=== PATIENT | male | born 1930 | race Caucasian/White ===

== ENCOUNTER 2016-06-13 08:23 | Emergency (ER) | payer MEDICARE, OTHER ==
[2016-06-13] MEDS ORDERED: Ibuprofen TAB* 600 MG PO ONE (08:44)
--- NOTE | 2016-06-13 09:17 | RAD ---
HISTORY: Trauma, injury to left lower quadrant, left hip pain COMPARISONS: None TECHNIQUE: Multiple contiguous axial CT scans were obtained of the lumbar spine without intravenous contrast, with coronal and sagittal multiplanar reformations. FINDINGS: SPINAL CANAL: Evaluation of the central canal is limited on CT technique; however, there is no obvious canalicular mass or epidural hemorrhage. ALIGNMENT: There is trace anterolisthesis of L4 on L5 VERTEBRAL BODIES: There is diffuse osteopenia. There is an age-indeterminate compression deformity of T11. There is no osseous retropulsion.. JOINTS: There is facet osteoarthritis most pronounced at L4-L5 and L5-S1 MUSCULATURE: Unremarkable INTERVERTEBRAL DISCS: There is diffuse loss of intervertebral disc height throughout the spine. AXIAL IMAGES: T10-T11: There is no osseous neural foraminal narrowing or central canal stenosis. T11-12: There is no osseous neural foraminal narrowing or central canal stenosis. T12-L1: There is no osseous neural foraminal narrowing or central canal stenosis. L1-L2: There is mild disc bulge. There is no osseous neural foraminal narrowing or central canal stenosis. L2-L3: There is no osseous neural foraminal narrowing or central canal stenosis. L3-L4: There is a broad-based disc bulge. There is moderate bilateral neural foraminal narrowing. There is mild narrowing of the central canal. L4-L5: There is broad-based disc bulge with ligamentous and facet hypertrophy. There is severe bilateral neural foraminal narrowing. There is severe narrowing of central canal. L5-S1: There is broad-based disc bulge. There is moderate bilateral neural foraminal narrowing. There is no significant central canal stenosis. SOFT TISSUES: There is atherosclerosis of the aorta. There are nonobstructing calyceal stones of the upper pole of the left kidney. Simple renal cyst is noted on the left OTHER: None IMPRESSION: 1. OSTEOPENIA. 2. 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 3. DEGENERATIVE DISC DISEASE AND OSTEOARTHRITIS. 4. THERE IS SEVERE NARROWING OF THE CENTRAL CANAL AT L4-L5 WITH MILD NARROWING AT L3-L4. 5. THERE IS MULTILEVEL NEURAL FORAMINAL NARROWING RIGHT ABOVE. 6. NONOBSTRUCTING LEFT RENAL CALYCEAL STONES.
[2016-06-13] MEDS ORDERED: oxyCODONE/Acetamin 5/325 MG* TAB PO ONE (09:41)
[2016-06-13] MEDS ORDERED: LORazepam TAB(*) 1 MG PO ONE (12:41)
[2016-06-13 15:16] VITALS: BP 143/93
--- NOTE | 2016-06-15 07:45 | ED ---
Ld Adams Benjamin, scribed for Moy Carbajal MD on 06/13/16 at 0847 . Back Pain - HPI Summary HPI Summary: 85yo male c/o slipped and fell, landing on his left hip. Pt is able to walk without pain, but states that his left back hurts when he rotates his hips laterally. Pt also reports bloated stomach. - History of Current Complaint Chief Complaint: EDBackInjuryPain Stated Complaint: LT HIP PAIN Time Seen by Provider: 06/13/16 08:43 Hx Obtained From: Patient Onset/Duration: Sudden Onset, Still Present Onset/Duration: Still Present Timing: Constant Back Pain Location: Is Discrete @ - Left back Severity Initially: Mild Severity Currently: Mild Aggravating Symptom(s): Movement Alleviating Symptom(s): Rest Associated Signs And Symptoms: Positive: Negative - Allergies/Home Medications Allergies/Adverse Reactions: Allergies Allergy/AdvReac Type Severity Reaction Status Date / Time No Known Allergies Allergy Verified 12/01/14 08:49 PMH/Surg Hx/FS Hx/Imm Hx Cardiovascular History: Reports: Other Cardiovascular Problems/Disorders Sensory History: Reports: Hx Contacts or Glasses - GLASSES Denies: Hx Hearing Aid Opthamlomology History: Reports: Hx Contacts or Glasses - GLASSES - Surgical History Surgery Procedure, Year, and Place: MEATAL SURGERY 50 YRS AGO Hx Anesthesia Reactions: No - Family History Known Family History: Negative: Cardiac Disease, Hypertension - Social History Occupation: Retired Lives: Alone Alcohol Use: Rare Substance Use Type: Reports: None Smoking Status (MU): Former Smoker Review of Systems Constitutional: Negative Eyes: Negative ENT: Negative Cardiovascular: Negative Respiratory: Negative Gastrointestinal: Negative Genitourinary: Negative Positive: Myalgia - left back pain Skin: Negative Neurological: Negative Psychological: Normal All Other Systems Reviewed And Are Negative: Yes Physical Exam Triage Information Reviewed: Yes Vital Signs On Initial Exam: Initial Vitals Resp 15 06/13/16 12:47 Vital Signs Reviewed: Yes Appearance: Positive: Well-Appearing, No Pain Distress, Well-Nourished Skin: Positive: Warm, Skin Color Reflects Adequate Perfusion, Dry Head/Face: Positive: Normal Head/Face Inspection Eyes: Positive: Normal ENT: Positive: Normal ENT inspection Neck: Positive: Supple, Nontender Respiratory/Lung Sounds: Positive: Clear to Auscultation, Breath Sounds Present Cardiovascular: Positive: RRR Abdomen Description: Positive: Nontender, Soft Bowel Sounds: Positive: Present Musculoskeletal: Positive: Strength/ROM Intact, Pain @ - Left sciatic area/ paralumbar area tenderness Neurological: Positive: Sensory/Motor Intact, Alert, Oriented to Person Place, Time, CN Intact II-III, Reflexes Intact Psychiatric: Positive: Affect/Mood Appropriate Diagnostics - Vital Signs Vital Signs Temp Pulse Resp BP Pulse Ox 06/13/16 15:14 98.2 F 85 15 143/93 97 06/13/16 12:47 15 - Laboratory Lab Statement: Any lab studies that have been ordered have been reviewed, and results considered in the medical decision making process. - CT CT L-Spine WO CT Interpretation: Positive (See Comments) - IMPRESSION: 1. OSTEOPENIA. 2. AGE -INDETERMINATE COMPRESSION DEFORMITY OF T11, WITHOUT OSSEOUS RETROPULSION. 3. DEGENERATIVE DISC DISEASE AND OSTEOARTHRITIS. 4. THERE IS SEVERE NARROWING OF THE CENTRAL CANAL AT L4-L5 WITH MILD NARROWING AT L3-L4. 5. THERE IS MULTILEVEL NEURAL FORAMINAL NARROWING RIGHT ABOVE. 6. NONOBSTRUCTING LEFT RENAL CALYCEAL STONES. CT Interpretation Completed By: Radiologist Back Pain Course/Dx - Course Course Of Treatment: Mr. Keys took a mechanical fall last night and found he was unable to get up this AM secondary to severe back pain. CT revealed a compression fracture of indeterminant age and this is likely the source of his pain. The pain was hard to control here with PO meds and arrangements were made to have him transfer to the nursing section of [facility]. - Diagnoses Provider Diagnoses: Compression fracture of body of thoracic vertebra Discharge - Discharge Plan Condition: Stable Disposition: HOME Prescriptions: oxyCODONE/Acetamin 5/325 MG* [Percocet 5/325 TAB*] 1 tab PO Q6H PRN #20 tab MDD 4 PRN Reason: Pain - Back Patient Education Materials: Vertebral Compression Fracture (ED) Referrals: Vilma Goldberg MD [Primary Care Provider] - The documentation as recorded by the Ld hunt Benjamin accurately reflects the service I personally performed and the decisions made by me, Moy Carbajal MD.
== END 2016-06-13 17:43 | disposition home or self-care (01) ==
LOC: ED 08:23
DX: M85.80 Other specified disorders of bone density and structure, unspecified site (principal); M51.36 Other intervertebral disc degeneration, lumbar region; M48.56XA Collapsed vertebra, not elsewhere classified, lumbar region, initial encounter for fracture
CPT/HCPCS: 72131; 99282; A9270-GY

== ENCOUNTER 2017-05-05 14:13 | Emergency (ER) | payer MEDICARE, OTHER ==
[2017-05-05 14:30] VITALS: BP 145/64
--- NOTE | 2017-05-05 15:27 | RAD ---
INDICATION: 3 days of congestion, cough and fever COMPARISON: None TECHNIQUE: PA and lateral views of the chest were obtained. FINDINGS: The heart and mediastinum are normal in size and contour. Linear density at the right greater than left lung base is morphologically most consistent with atelectasis. Otherwise the visualized lungs are grossly clear. There is no evidence of large pleural effusion. Visualized bones are normal for the patient's age. There is no radiographic evidence of free air beneath the diaphragm IMPRESSION: LIKELY RIGHT GREATER THAN LEFT BIBASILAR ATELECTASIS WITHOUT OTHER ACUTE CARDIOPULMONARY FINDINGS.
--- NOTE | 2017-05-05 16:05 | UC ---
Ryan Adams Stephanie, scribed for Tim Vanessa MD on 05/05/17 at 1605 . General HPI - HPI Summary HPI Summary: Pt is an 86 y/o M with c/o cough that began 2 days ago. Symptoms include pain over R lateral chest, SOB, and fever that developed 2 days ago. Pt denies GI issues. SOB is aggrevated with movement but is alleviated with rest. Pt does not smoke and has not taken any medications to relieve symptoms. - History of Current Complaint Chief Complaint: UCGeneralIllness Stated Complaint: CHEST CONGESTION, COUGH, AND FEVER Time Seen by Provider: 05/05/17 14:45 Hx Obtained From: Patient Onset/Duration: Sudden Onset Associated Signs & Symptoms: Positive: Cough, Chest Pain - R lateral, Fever, SOB. Negative: Diarrhea - Allergy/Home Medications Allergies/Adverse Reactions: Allergies Allergy/AdvReac Type Severity Reaction Status Date / Time No Known Allergies Allergy Verified 05/05/17 14:30 PMH/Surg Hx/FS Hx/Imm Hx Previously Healthy: No - Surgical History Surgical History: None Surgery Procedure, Year, and Place: METAL SURGERY 50 YRS AGO - Family History Known Family History: Negative: Cardiac Disease, Hypertension - Social History Occupation: Retired Alcohol Use: Rare Substance Use Type: None Smoking Status (MU): Former Smoker When Did the Patient Quit Smoking/Using Tobacco: 60 YRS AGO Review of Systems Constitutional: Fever Respiratory: Shortness Of Breath, Cough Cardiovascular: Chest Pain - R lateral All Other Systems Reviewed And Are Negative: Yes Physical Exam Triage Information Reviewed: Yes Vital Signs: Initial Vital Signs Temp 100.9 F 05/05/17 14:24 Pulse 88 05/05/17 14:24 Resp 20 05/05/17 14:24 BP 145/64 05/05/17 14:24 Pulse Ox 97 05/05/17 14:24 - Additional Comments General: well-appearing, no pain distress Skin: warm, color reflects adequate perfusion, dry Head: normal Eyes: EOMI, JESSENIA ENT: normal Neck: supple, nontender Respiratory: breath sounds present. Crackles in r base Cardiovascular: RRR Abdomen: soft, nontender Bowel: present Musculoskeletal: normal, strength/ROM intact Neurological: normal, sensory/motor intact, A&O x3 Psychological: affect/mood appropriate Diagnostics - Radiology CXR Xray Interpretation: No Acute Changes - LIKELY RIGHT GREATER THAN LEFT BIBASILAR ATELECTASIS WITHOUT OTHER ACUTE CARDIOPULMONARY FINDINGS. Radiology Interpretation Completed By: Radiologist Course/Dx - Course Course Of Treatment: DISCUSSED OTHER CAUSES OF CHEST PAIN TO INCLUDE PE. PT IS NOT TACHYCARDIC AND NOT HYPOXIC. NO RASH. WITH THE FEVER AND COUGH WILL TREAT FOR BRONCHITIS. F/U WITH PMD TOMORROW. PATIENT AGREED TO GO TO THE EMERGENCY DEPARTMENT FOR ANY WORSENING OF HIS CONDITION. - Differential Dx - Multi-Symptom Provider Diagnoses: BRONCHITIS AND RIGHT SIDED CHEST PAIN Discharge - Discharge Plan Condition: Stable Disposition: HOME Prescriptions: Azithromyxin LALO (NF) [Z-Lalo (Zithromax) 250 mg tabs #6] 2 tab PO .TODAY, THEN 1 DAILY #6 tab Patient Education Materials: Chest Pain (ED), Acute Bronchitis (ED) Referrals: Moses Conti MD [Primary Care Provider] - Additional Instructions: FOLLOW UP WITH YOUR DOCTOR. GO TO THE EMERGENCY DEPARTMENT FOR ANY WORSENING OF YOUR CONDITION; CHEST PAIN, SHORTNESS OF BREATH, YOU FEEL ILL OR QUESTIONS OR CONCERNS. The documentation as recorded by the Ryan hunt Stephanie accurately reflects the service I personally performed and the decisions made by me, Tim Vanessa MD.
== END 2017-05-05 16:00 | disposition home or self-care (01) ==
LOC: UCEAST 14:13
DX: J40 Bronchitis, not specified as acute or chronic (principal); R07.9 Chest pain, unspecified; Z87.891 Personal history of nicotine dependence
CPT/HCPCS: 71020; 99212; G0463

== ENCOUNTER → 2019-08-11 08:01 | Day surgery (SDC) | payer MEDICARE, OTHER ==
[~2019-08-11 08:01] MED LIST: Heparin 2 UNITS/ML IVPREMIX* 2,000 ML IV ONE; Heparin(*) 1000 UNIT/ML 10 ML VIAL CATH LAB IV ONE; Iohexol 350 (CONTRAST) 200 ML MDV IV ONE; Lidocaine 1% INJ* 10 MG/ML 30 ML SDV ONE; Midazolam* 1 MG/ML 5 ML VIAL (5 MG) ONE; NS 0.9% 1000 ML** 1,000 ML IV SCH; VERAPAMIL 2.5 MG/ML 2 ML VIAL ** 5 mg/2 ml ONE; fentaNYL* 50 MCG/ML 2 ML VIAL (100 MCG VIAL) ONE; nitroGLYCERIN DRIP* 25,000 MCG/250 ML BTL ONE
[2019-08-11 09:11] LABS: ABS Eosinophils 0.1 10^3/ul (0-0.6); ABS Lymphocytes 1.4 10^3/ul (1.0-4.8); ABS Monocytes 0.6 10^3/ul (0-0.8); ABS Neutrophils 3.6 10^3/ul (1.5-7.7); Eosinophil % 1.7 %; Hematocrit 44 % (42-52); Hemoglobin 14.9 g/dL (14.0-18.0); Lymphocyte % 24.8 %; Mean Corpuscular HGB Conc 34 g/dL (31-36); Mean Corpuscular Hemoglobin 32 pg (27-31); Mean Corpuscular Volume 92 fL (80-94); Mean Platelet Volume 8.5 fL (7.4-10.4); Platelet Count 168 10^3/uL (150-450); Red Blood Count 4.74 10^6 /uL (4.18-5.48); Red Cell Distribution Width 13 % (10-15); White Blood Count 5.7 10^3/uL (3.5-10.8)
[2019-08-11 09:20] LABS: Activated Partial Thrombo Time 33.3 seconds (26.0-38.0); INR 1.04 (0.82-1.09)
[2019-08-11 09:30] LABS: BUN/Creatinine Ratio 18.6 (8-20); Calcium 8.6 mg/dL (8.6-10.3); EGFR African American 73.9 (>60); EGFR Non-African American 61.1 (>60); Potassium 4.4 mmol/L (3.5-5.0)
[2019-08-11 10:59] VITALS: BP 127/66
--- NOTE | 2019-08-12 08:57 | CATH ---
CC: Dr. Alex Trinidad, [facility]; Dr. Moses Conti * CARDIAC CATHETERIZATION REPORT: DATE OF PROCEDURE: 08/11/19 - [facility] CATH REASON FOR THE PROCEDURE: Asked by Dr. Alex Trinidad (the patient's primary spinner frame) to assess the patient in light of abnormal stress echocardiogram done on 07/10/19 with poor exercise tolerance with positive symptoms, EKG changes, and wall motion abnormality involving the inferior low posterolateral wall suggesting ischemia. Assess the patient now for underlying coronary artery disease. PROCEDURE: Coronary arteriography. CONSENT: The patient was interviewed and examined in the holding area of the experimental machining lab manager where the risks and benefits were explained. He understood them and wished to proceed. APPROACH UTILIZED: The right radial artery was assessed for size in the holding area and found to be acceptable for an approach. EQUIPMENT UTILIZED: 1. Right radial artery sheath was a 6-Libyan Glidesheath Slender. 2. Diagnostic guidewires utilized were both a regular length Wholey guidewire and a 260 length Silva curved guidewire. 3. Diagnostic guidewires utilized - initially a TIG4 5-Libyan catheter was utilized, this was then exchanged for a 6-Libyan FL4 curved guide catheter and a 6- Libyan FR4 curved guide catheter. 4. Closure device utilized was a regular sized Vasc Band. PRECARDIAC CATHETERIZATION LABORATORY RESULTS: Hemoglobin and hematocrit of 14.9 and 44 with a platelet count of 168,000. BUN and creatinine of 21 and 1.13. Sodium 141, potassium 4.4, chloride 109, bicarb 26. MEDICATIONS GIVEN DURING THE PROCEDURE: The patient received a radial artery cocktail including 3000 units of heparin, 300 mcg of nitroglycerin, 3 mg of verapamil. 1% Xylocaine was utilized for local anesthesia. DESCRIPTION OF PROCEDURE: The patient was brought to the cardiovascular laboratory where a formal time-out was performed. He was prepped and draped in sterile fashion and under ultrasound guidance, the right radial artery was cannulated. The sheath was placed. Of note, there was tortuosity in the subclavian innominate artery area and as such a Wholey wire was utilized to deliver the catheters. Of note, guiding catheters had to be used in order to get better stability of the catheters in the coronary arteries. Coronary arteriography was performed. Following this, the catheters and sheaths were removed and hemostasis was obtained with a Vasc Band. The reverse Barbeau was a B. The total contrast used was 110 cc of Omnipaque dye. The radiation exposure included 9.1 minutes of fluoro time. The air kerma radiation was 1662 mGy. The DAP radiation was 9303 microgray per meter squared. RESULTS: CORONARY ARTERIOGRAPHY: A. Left coronary artery: 1. Left main - there was tapering of the distal left main with an eccentric narrowing of approximately 20%. The ostium of the left main had a 20 % narrowing as well. 2. Left anterior descending artery. 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 There was calcium seen within the wall of the vessel. After this area, the artery narrowed back to a more normal caliber just near the area of the second diagonal branch. Second diagonal branch was a small caliber and short vessel which had a significant 85 % obstruction seen in its proximal/ostial area. The continuation of the LAD extended to the apical region. There was a mid to distal narrowing in the LAD of approximately 75%. It should be noted that collateral blood flow was seen through the septal perforators to the right coronary artery PDA. 3. Circumflex artery - the circumflex was a nondominant vessel supplying the first and second obtuse marginal branch and ending in a low lying posterior left ventricular branch. Collateral flow was seen to the distal right coronary artery from the circumflex as well. The proximal portion of the circumflex had what appeared to be a 40% to 45% narrowing best noted in the SYRIAC caudal projection. The ostium of the first obtuse marginal branch had a narrowing of 50%. The continuation of the circumflex past the first obtuse marginal branch also had a narrowing of approximately 50% to 55%. Of note, calcium was seen throughout the proximal portion of the LAD as well as the distal left main. B. Right coronary artery - a dominant vessel with poor blood flow to the PDA or the posterior left ventricular branch. There was proximal 75% to 80% lesion seen. As the artery turned onto the inferior surface of the heart, there was an area that appeared to be dissected in nature seen in multiple planes with narrowings as much as 90 %, with slow flow past it continuing on supplying blood flow to the PDA faintly and to the distal posterior left ventricular branch. Of note, the distal posterior left ventricular branch seemed to have dye hang up in that area without washout suggesting that there may be a blockage past that point within that posterolateral branch that was also getting retrograde filling via the left system. OVERALL ASSESSMENT: Significant coronary artery disease specifically involving the right coronary artery both proximally in its mid to distal area as described as well as with the mid LAD. At this point in time, the decision was made to review the films and also have [facility] review this study in order to assess the best approach. Ideally, reopening of the right coronary artery would protect the area prior to intervention of the mid LAD if possible. Of note, the patient does have stable angina pectoris at this point in time and has not been put on maximal medical management. I discussed the case at length with Dr. Alex Trinidad, the primary spinner frame and as such, he favored increasing medical management which we did by starting amlodipine low dose 2.5 mg 1 day in addition to his metoprolol to be titrated up as an outpatient through Dr. Alex Trinidad as well as increasing his Crestor from 5 to 10 mg a day. The patient will be following up with Dr. Alex Trinidad next week for a wound check/ Cardiology followup visit at which point these issues will be further addressed. Of note, I did personally speak with Dr. Sea Disla of the [facility] [place] at [facility], who felt that if the patient continued to have symptoms, he would be willing to attempt to open up the right coronary artery by percutaneous coronary intervention. That information was also shared with the patient's primary spinner frame, Dr. Alex Trinidad. [id number]/[facility] #: [id number] [facility]
== END | disposition home or self-care (01) ==
LOC: CHICATH 08:01
PROVIDERS: ATTEND Internal Medicine Cardiovascular Disease
DX: I25.119 Atherosclerotic heart disease of native coronary artery with unspecified angina pectoris (principal); I35.0 Nonrheumatic aortic (valve) stenosis; R00.1 Bradycardia, unspecified; E78.00 Pure hypercholesterolemia, unspecified; M85.80 Other specified disorders of bone density and structure, unspecified site; M81.0 Age-related osteoporosis without current pathological fracture; R07.9 Chest pain, unspecified; H91.8X3 Other specified hearing loss, bilateral; R06.00 Dyspnea, unspecified; Z79.82 Long term (current) use of aspirin; Z87.891 Personal history of nicotine dependence
CPT/HCPCS: 36415; 80048; 85025; 85347; 85610; 85730; 93454; C1887; J1644; J2250; J3010